=== PATIENT | female | born 1990 | race Two or more races ===

== ENCOUNTER 2021-05-04 01:51 | Emergency (ER) | payer OTHER ==
[~2021-05-04] VITALS: Ht 162.6 cm; Wt 72.7 kg
[2021-05-04] MEDS ORDERED: TRAZ300T2 PO (02:06)
[2021-05-04] MEDS ORDERED: DULO20CA27 PO (02:06)
[2021-05-04] MEDS ORDERED: QUET300T72 PO (02:06)
[2021-05-04] MEDS ORDERED: PERTUSS(ACELL),DIPH,TET VAC/PF 0.5 ML SYRINGE IM. ONE (04:00)
[2021-05-04 04:08] LABS: GLUCOMETER DEV NAME(LOC) ERT.5; GLUCOSE,POINT OF CARE 83 MG/DL (70-110)
[2021-05-04 04:27] LABS: BASOPHILS % (AUTO) 0.9 % (0.0-2.0); EOSINOPHILS % (AUTO) 0.4 % (1.0-6.0); HEMATOCRIT 35.9 % (36-46); HEMOGLOBIN 11.9 g/dL (12.0-16.0); LYMPHOCYTES # (AUTO) 2.5 K/uL (1.0-4.8); MEAN CORPUSCULAR HGB CONC 33.2 G/dL (31.0-37.0); MEAN CORPUSCULAR VOLUME 90 fL (80-100); MONOCYTES # (AUTO) 0.5 K/uL (0.1-1.0); MONOCYTES % (AUTO) 5.8 % (2.0-9.0); NEUTROPHILS # (AUTO) 5.4 K/uL (1.8-7.7); NEUTROPHILS % (AUTO) 63.9 % (40.0-70.0); PLATELET COUNT (AUTO) 317 K/uL (150-450); RED BLOOD CELL COUNT(AUTO) 3.98 MIL/uL (4.00-5.20); RED CELL DISTRIBUTION WIDTH 15.4 % (11.5-14.5)
[2021-05-04 04:36] LABS: ANION GAP 12 mmol/L (8-16); CALCIUM, TOTAL 8.1 mg/dL (8.8-10.5); CARBON DIOXIDE 23 mmol/L (22-29); CHLORIDE 113 mmol/L (98-107); CREATININE 0.85 mg/dL (0.60-1.30); GLOMERULAR FILTR. RATE CALC > 60 mL/min (>60); GLUCOSE,RANDOM 92 mg/dL (70-110); POTASSIUM 3.3 mmol/L (3.5-5.1); SODIUM SERUM 148 mmol/L (136-145); UREA NITROGEN, BLOOD 8 mg/dL (7-18)
[2021-05-04 04:42] LABS: ALANINE AMINOTRANSFERASE 16 U/L (12-78); ALBUMIN 3.5 g/dL (3.4-5.0); ALKALINE PHOSPHATASE 109 U/L (46-116); ASPARTATE AMINOTRANSFERASE 12 U/L (15-37); BILIRUBIN,TOTAL 0.2 mg/dL (0.1-1.0); TOTAL PROTEIN, SERUM 6.6 g/dL (6.4-8.2)
[2021-05-04 04:46] LABS: HCG,QUANTITATIVE < 1 mIU/mL (0-6)
[2021-05-04 04:47] LABS: ACETAMINOPHEN < 2 mcg/mL (10-30); VALPROIC ACID < 3 mcg/mL (50-100)
[2021-05-04 04:49] LABS: SALICYLATE 9.1 mg/dL (2.8-20.0)
[2021-05-04 04:51] VITALS: BP 99/61
[2021-05-04 04:53] LABS: COVID AG,FIA SOURCE NASOPHARYNGEAL
== END 2021-05-04 09:35 | disposition home or self-care (01) ==
LOC: EMS 01:52
DX: S00.81XA Abrasion of other part of head, initial encounter (principal); E87.6 Hypokalemia; R41.82 Altered mental status, unspecified; F10.229 Alcohol dependence with intoxication, unspecified; G89.29 Other chronic pain; M54.50 Low back pain, unspecified; F32.9 Major depressive disorder, single episode, unspecified; F41.9 Anxiety disorder, unspecified; Z79.899 Other long term (current) drug therapy; Z20.822 Contact with and (suspected) exposure to COVID-19; W10.1XXA Fall (on)(from) sidewalk curb, initial encounter; Y93.89 Activity, other specified; Y92.89 Other specified places as the place of occurrence of the external cause; Y99.8 Other external cause status
CPT/HCPCS: 36415; 70450; 72125; 80053; 80164; 82962; 84702; 85025; 87426; 90471; 90715; 99284; G0480 ×2; G0481

== ENCOUNTER 2021-08-22 21:22 | Emergency (ER) | payer OTHER ==
[~2021-08-22] VITALS: Ht 162.6 cm; Wt 81.0 kg
[~2021-08-22 21:22] MED LIST: DULO20CA27 PO; QUET300T72 PO; TRAZ300T2 PO
[2021-08-22 22:33] VITALS: BP 135/88
== END 2021-08-22 23:03 | disposition home or self-care (01) ==
LOC: EMS 21:30
DX: F41.9 Anxiety disorder, unspecified (principal); K12.0 Recurrent oral aphthae; Z79.899 Other long term (current) drug therapy; F32.9 Major depressive disorder, single episode, unspecified
CPT/HCPCS: 99284; Z7502